=== PATIENT | female | born 1940 | race Caucasian/White ===

== ENCOUNTER 2017-02-10 19:42 | Inpatient (IN) | payer MEDICARE, BC ==
--- NOTE | ~2017-02-10 | DS ---
Discharge Summary [facility] [address] [place]. [address] NAME: IMELDA ACE : 40 STATUS : DIS IN PAT#: [id number] AGE: 76 ADM/REG DATE : 02/10/17 MR#: [id number] REPORT SERV DATE: 02/13/17 DICTATED BY: EDWAR DAVENPORT DATE: 02/12/17 REPORT STATUS : Draft TRANSCRIBED BY: MODFrancia DATE: 02/12/17 ADMISSION DATE: 02/10/2017 DISCHARGE DATE: 02/12/2017 DISCHARGE DIAGNOSES: 1. Cat bite resulting in cellulitis of right hand. 2. Sepsis. 3. Hypertension. 4. Bradyarrhythmia with an AICD. 5. Chronic vertigo. CONSULTS: None. PROCEDURES: None. HOSPITAL COURSE: This is a 76-year-old lady who was admitted to the hospital with a cellulitis of the right hand after a cat bite. For details please refer to H and P by Dr. Kuhn. In summary, the patient presented with sepsis and was started on broad-spectrum antibiotics with IV Zosyn. Just overnight, the patient already started to show signs of improvement. The antibiotic was switched to p.o. Augmentin which she tolerated well and the patient continued to show signs of improvement. On the 3rd day of the hospital stay, the patient was felt ready for discharge home to continue the antibiotic course. The patient was admitted with a white blood cell count of 16,000 but on the day of discharge her white blood cell count is 8000. Although the patient initially had a fever up to 102 on admission, the patient remained afebrile throughout the entire hospital stay. The patient also clinically improved with much improved mobilization of her right hand. The patient is now being discharged home with close outpatient followup instructions. DISCHARGE MEDICATIONS: Augmentin 875 one tablet p.o. b.i.d. x7 days to complete a 10-day course. Otherwise, no medication changes. DISPOSITION: Discharged to home. FOLLOWUP: Please follow up with PCP in the next one to two weeks. A total of 25 minutes spent in coordinating this patient's discharge today. TOMER/MORIAH Edwar Davenport MD / [id number] Discharge Summary [address] [place]. [address] NAME: IMELDA ACE : 40 STATUS : DIS IN PAT#: [id number] AGE: 76 ADM/REG DATE : 02/10/17 MR#: [id number] REPORT SERV DATE: 02/13/17 DICTATED BY: EDWAR DAVENPROT DATE: 02/12/17 REPORT STATUS : Draft TRANSCRIBED BY: MORIAH DATE: 02/12/17 CC: Edwar Davenport MD
--- NOTE | ~2017-02-10 | HP ---
History And Physical [place] [id number] [facility] [place]. [address] NAME: IMELDA ACE : 40 STATUS : ADM IN [facility]#: [id number] AGE: 76 ADM/REG DATE : 02/10/17 MR#: [id number] REPORT SERV DATE: 02/11/17 DICTATED BY: MARITZA BULLARD DATE: 02/10/17 REPORT STATUS : Draft TRANSCRIBED BY: MORIAH DATE: 02/10/17 DATE OF ADMISSION: 02/10/2017 CHIEF COMPLAINT: Cat bite. HISTORY OF PRESENT ILLNESS: The patient is a very pleasant 76-year-old female with past medical history of bradyarrhythmia, status post pacer, defibrillator, and hypertension, who was in her usual state and she was feeding essentially a neighborhood cat that she has known for some time now, but had accidental cat bite to her right hand. The patient noted to have erythema that was noted at that site, placed triple antibiotic, alcohol, and cleansers. Overnight, she was able to get some rest, but in the morning, started to have increased redness that encompassed the arm, also noted to have fever up to 102, went to clinic, was given tetanus shot and referred to emergency room due to increased redness and febrile. Symptoms of discomfort have been constant, moderate severity, dull, radiating up to forearm, associated with mild nausea, fever, chills, and weakness. The patient typically does walk every day, but has not really been feeling as well as she usually does due to this acute issue. Symptoms are worsened with palpation and range of motion, relieved by sitting. Symptoms are still currently present, and does have distinct red streaking on hand. REVIEW OF SYSTEMS: A 10-point review of systems is negative except that noted in the HPI. PAST MEDICAL HISTORY: Hypertension and AICD due to bradyarrhythmia. SURGICAL HISTORY: Defibrillator with pacer placement, hysterectomy, pacer did have redo secondary to lead malalignment. SOCIAL HISTORY: No smoking, alcohol, or illicits. Lives independently. Exercises daily. Accompanied by daughter and granddaughter. 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 FAMILY HISTORY: Of her ten siblings, four of the siblings including her have had pacer placements. PHYSICAL EXAMINATION: VITAL SIGNS: The patient's blood pressure is 136/63, temperature 99.4 up to 102, pulse 63, respirations 18, O2 saturations 96% on room air. GENERAL: No acute distress. Calm, pleasant, well developed, well nourished. EYES: No scleral icterus. EOMI. ENT: Nares patent. Moist mucous membranes. RESPIRATORY: Clear to auscultation. No wheezes, rales, or rhonchi. CHEST: Equal chest expansion. CV: Regular rate. No rubs or gallops. Capillary refill less than 2 seconds. GI: Soft, nontender, nondistended. Bowel sounds positive. No hepatomegaly. No rebound tenderness. : Deferred. History And Physical [address] [place]. [address] NAME: IMELDA ACE : 40 STATUS : ADM IN [facility]#: [id number] AGE: 76 ADM/REG DATE : 02/10/17 MR#: [id number] REPORT SERV DATE: 02/11/17 DICTATED BY: MARITZA BULLARD DATE: 02/10/17 REPORT STATUS : Draft TRANSCRIBED BY: MORIAH DATE: 02/10/17 MUSCULOSKELETAL: Moves all extremities x4. Does have pain with full range of motion on right hand, but does have full range of motion and sensations to touch and coolness noted on hands, particularly right hand where infection does have erythema going from palm up to forearm with streaking. SKIN: Warm and dry with erythema on right arm. LYMPH: No cervical or pedal edema. HEME: No bleeding or bruising. NEURO: Alert and oriented. Moves all extremities x4. 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 Sensations to cool touch still intact and fine touch. PSYCH: Appropriate mood and affect. ALLERGIES: NO KNOWN DRUG ALLERGIES. HOME MEDICATIONS: Artificial Tears, aspirin, Coreg, cranberry, vitamin B12, Cozaar, Antivert, vitamin B6, and vitamin E. LABORATORY DATA: H and H of 14.6 and 42.1 with platelets of 188, WBC 16.4. BUN and creatinine of 16 and 0.76. Sodium 139, potassium 4, chloride 105, bicarbonate 22, bilirubin mildly elevated at 1.8, and glucose 145. ASSESSMENT AND PLAN: 1. Cat bite, cellulitis. 2. Sepsis, present on arrival. 3. Hypertension. 4. Automatic implantable cardioverter defibrillator with bradyarrhythmia history. 5. Bilirubin elevation. 6. Dizziness and vertigo, chronic. PLAN: 1. For cat bite and cellulitis, Zosyn. Tetanus given in clinic. Monitor clinical, will elevate arm. 2. Sepsis. IV fluids, IV antibiotics. Early goal-directed therapy initiated in the emergency room. Monitor. Taper antibiotics to cultures. 3. Hypertension. ARB and Coreg. 4. AICD. Follow with Dr. Bardales and Dr. Bacon as an outpatient. Has had lead changed out approximately 2 months ago. 5. Elevated bilirubin. Nontender abdominal exam. Likely secondary to sepsis. 6. Dizziness and vertigo, on meclizine. Does have mild to faint nystagmus at times. All questions answered with the patient and her family at bedside. ULICES/MORIAH Maritza Bullard MD History And Physical [address] [address] NAME: IMELDA ACE : 40 STATUS : ADM IN [facility]#: [id number] AGE: 76 ADM/REG DATE : 02/10/17 MR#: [id number] REPORT SERV DATE: 02/11/17 DICTATED BY: MARITZA BULLARD DATE: 02/10/17 REPORT STATUS : Draft TRANSCRIBED BY: MODL DATE: 02/10/17 / [id number] CC: Edwar Hooker MD
[2017-02-10 17:15] LABS: BASOPHILS 0.1 %; BASOPHILS ABSOLUTE 0.01 10/3/uL (0.0-0.16); EOSINOPHILS 0.1 %; EOSINOPHILS ABSOLUTE 0.01 10/3/uL (0.0-0.53); HEMATOCRIT 42.1 % (36.0-48.0); HEMOGLOBIN 14.6 g/dL (12.0-16.0); IMMATURE GRANULOCYTES 0.2 %; IMMATURE GRANULOCYTES ABSOLUTE 0.04 10/3/uL (0.0-0.11); LYMPHOCYTES 6.4 %; LYMPHOCYTES ABSOLUTE 1.04 10/3/uL (0.67-4.30); MEAN CORPUS HGB CONC 34.7 g/dL (32.0-36.0); MEAN CORPUSCULAR HEMOGLOB 32.1 pg (26.0-34.0); MEAN CORPUSCULAR VOLUME 92.5 fL (80-100); MEAN PLATELET VOLUME 11.1 fL (9.2-13.0); MONOCYTES 5.8 %; MONOCYTES ABSOLUTE 0.95 10/3/uL (0.21-1.20); NEUTROPHILS 87.4 %; NEUTROPHILS ABSOLUTE 14.31 10/3/uL (2.02-8.40); PLATELET COUNT 188 10/3/uL (150-400); RBC DISTRIBUTION WIDTH 12.9 % (12.0-16.0); RED CELL COUNT 4.55 10/6/uL (4.0-5.6)
[2017-02-10 17:20] LABS: ER CBC TAT 0 Hrs 10 Mins; MANUAL DIFF NO %; WHITE BLOOD CELLS 16.4 10/3/uL (4.5-10.5)
[2017-02-10 17:33] LABS: A/G RATIO 1.1 (0.7-1.9); ALBUMIN 3.9 G/DL (3.5-5.0); ALKALINE PHOSPHATASE 71 U/L (45-117); BUN (BLOOD UREA NITROGEN) 16 MG/DL (6-23); CALCIUM, SERUM 9.1 MG/DL (8.5-10.4); CHLORIDE, SERUM 105 MMOL/L (96-112); CO2 (CARBON DIOXIDE) 22 MMOL/L (24-34); CREATININE 0.76 MG/DL (0.55-1.02); GFR AFRICAN AMERICAN 88 ML/MIN (>=60); GFR NON AFRICAN AMERICAN 76 ML/MIN (>=60); GLOBULIN 3.6 G/DL (2.5-4.1); GLUCOSE, SERUM 145 MG/DL (60-99); SGOT(AST) 16 U/L (5-40); SGPT(ALT) 23 U/L (5-65); SODIUM, SERUM 139 MMOL/L (135-148); TOTAL BILIRUBIN 1.8 MG/DL (0-1.2); TOTAL PROTEIN 7.5 G/DL (6.0-8.5)
[~2017-02-10 19:42] MED LIST: ASAB PO; COREG6 PO; COZ25 PO; COZ50 PO; CRANBERRY PO; CRANBERRY1 TAB OR; CRANBERRY300 MG PO; CYANO1000T PO; ESTROVENT; HALF81 PO; LUTEIN; LUTEIN1 CAP PO; MCZ25 PO; MULTIPLE VIT PO; PRIN5 PO; TEARS PLUS OPH; ULTRAM50 PO; VIT B-SIX 50 MG50 MG PO; VITAMIN B PO; VITAMIN B-121000 MC1 SL; VITAMIN D31000 UNIT PO; VITE PO
[2017-02-10 21:13] LABS: LACTATE 1.4 MMOL/L (0.3-2.4)
[2017-02-11 00:32] LABS: LACTATE 4.1 MMOL/L (0.3-2.4)
[2017-02-11 04:59] LABS: BASOPHILS 0.1 %; BASOPHILS ABSOLUTE 0.01 10/3/uL (0.0-0.16); EOSINOPHILS 0.1 %; EOSINOPHILS ABSOLUTE 0.02 10/3/uL (0.0-0.53); HEMATOCRIT 40.7 % (36.0-48.0); HEMOGLOBIN 13.6 g/dL (12.0-16.0); IMMATURE GRANULOCYTES 0.4 %; IMMATURE GRANULOCYTES ABSOLUTE 0.06 10/3/uL (0.0-0.11); LYMPHOCYTES 14.2 %; LYMPHOCYTES ABSOLUTE 2.14 10/3/uL (0.67-4.30); MEAN CORPUS HGB CONC 33.4 g/dL (32.0-36.0); MEAN CORPUSCULAR HEMOGLOB 31.5 pg (26.0-34.0); MEAN CORPUSCULAR VOLUME 94.2 fL (80-100); MEAN PLATELET VOLUME 11.2 fL (9.2-13.0); MONOCYTES 8.7 %; MONOCYTES ABSOLUTE 1.31 10/3/uL (0.21-1.20); NEUTROPHILS 76.5 %; NEUTROPHILS ABSOLUTE 11.57 10/3/uL (2.02-8.40); PLATELET COUNT 180 10/3/uL (150-400); RBC DISTRIBUTION WIDTH 12.9 % (12.0-16.0); RED CELL COUNT 4.32 10/6/uL (4.0-5.6); WHITE BLOOD CELLS 15.1 10/3/uL (4.5-10.5)
[2017-02-11 05:00] LABS: MANUAL DIFF NO %
[2017-02-11 05:16] LABS: ALBUMIN 3.3 G/DL (3.5-5.0); ALKALINE PHOSPHATASE 60 U/L (45-117); CALCIUM, SERUM 9.1 MG/DL (8.5-10.4); CHLORIDE, SERUM 109 MMOL/L (96-112); CO2 (CARBON DIOXIDE) 23 MMOL/L (24-34); CREATININE 0.68 MG/DL (0.55-1.02); GFR AFRICAN AMERICAN 98 ML/MIN (>=60); GFR NON AFRICAN AMERICAN 85 ML/MIN (>=60); GLOBULIN 3.4 G/DL (2.5-4.1); GLUCOSE, SERUM 125 MG/DL (60-99); POTASSIUM, SERUM 3.8 MMOL/L (3.5-5.3); SGOT(AST) 13 U/L (5-40); SGPT(ALT) 18 U/L (5-65); SODIUM, SERUM 141 MMOL/L (135-148); TOTAL BILIRUBIN 1.5 MG/DL (0-1.2); TOTAL PROTEIN 6.7 G/DL (6.0-8.5)
[2017-02-11 05:19] LABS: BUN (BLOOD UREA NITROGEN) 11 MG/DL (6-23)
[2017-02-12 05:11] LABS: BASOPHILS 0.1 %; BASOPHILS ABSOLUTE 0.01 10/3/uL (0.0-0.16); EOSINOPHILS ABSOLUTE 0.17 10/3/uL (0.0-0.53); HEMATOCRIT 41.8 % (36.0-48.0); HEMOGLOBIN 13.7 g/dL (12.0-16.0); IMMATURE GRANULOCYTES 0.2 %; IMMATURE GRANULOCYTES ABSOLUTE 0.02 10/3/uL (0.0-0.11); LYMPHOCYTES 16.4 %; LYMPHOCYTES ABSOLUTE 1.42 10/3/uL (0.67-4.30); MEAN CORPUS HGB CONC 32.8 g/dL (32.0-36.0); MEAN CORPUSCULAR HEMOGLOB 31.6 pg (26.0-34.0); MEAN CORPUSCULAR VOLUME 96.5 fL (80-100); MONOCYTES 9.9 %; MONOCYTES ABSOLUTE 0.86 10/3/uL (0.21-1.20); NEUTROPHILS 71.4 %; NEUTROPHILS ABSOLUTE 6.17 10/3/uL (2.02-8.40); PLATELET COUNT 170 10/3/uL (150-400); RBC DISTRIBUTION WIDTH 13.1 % (12.0-16.0); RED CELL COUNT 4.33 10/6/uL (4.0-5.6)
[2017-02-12 05:14] LABS: WHITE BLOOD CELLS 8.7 10/3/uL (4.5-10.5)
[2017-02-12 05:15] LABS: MANUAL DIFF NO %
[2017-02-12 05:47] LABS: BUN (BLOOD UREA NITROGEN) 12 MG/DL (6-23); CALCIUM, SERUM 9.2 MG/DL (8.5-10.4); CHLORIDE, SERUM 110 MMOL/L (96-112); CO2 (CARBON DIOXIDE) 24 MMOL/L (24-34); CREATININE 0.61 MG/DL (0.55-1.02); GFR AFRICAN AMERICAN 102 ML/MIN (>=60); GFR NON AFRICAN AMERICAN 88 ML/MIN (>=60); GLUCOSE, SERUM 102 MG/DL (60-99); POTASSIUM, SERUM 3.9 MMOL/L (3.5-5.3); SODIUM, SERUM 143 MMOL/L (135-148)
[2017-02-12 06:38] LABS: PROCALCITONIN 0.22 ng/mL (<0.5)
[2017-02-12] MEDS ORDERED: AUG875 PO (10:17)
== END 2017-02-12 12:12 | disposition home or self-care (01) | DRG 872 ==
LOC: ER 19:42 → 6NO 20:42
PROVIDERS: Internal Medicine; Physician Assistant; Student in an Organized Health Care Education/Training Program
DX: A41.9 Sepsis, unspecified organism (principal); L03.113 Cellulitis of right upper limb; I10 Essential (primary) hypertension; S61.451A Open bite of right hand, initial encounter; R42 Dizziness and giddiness; H55.00 Unspecified nystagmus; Z77.090 Contact with and (suspected) exposure to asbestos; Z79.82 Long term (current) use of aspirin; Z95.810 Presence of automatic (implantable) cardiac defibrillator
CPT/HCPCS: 73130-RT; 80048; 80053; 82962; 83605; 84145; 85025; 87040; 96365; 99285; A9270-GY; J2543